=== PATIENT | female | born 2000 | race Caucasian/White ===

== ENCOUNTER 2020-02-25 08:00 | Outpatient (RCR) | payer OTHER | END 2020-05-25 | disposition home or self-care (01) | LOC: CARD 08:00 | PROVIDERS: ATTEND Nurse Practitioner Family | DX: R00.0 Tachycardia, unspecified (principal); R00.2 Palpitations; R42 Dizziness and giddiness; R07.89 Other chest pain | CPT/HCPCS: 93225; 93226 ==

== ENCOUNTER → 2020-03-10 | Outpatient (CLI) | payer OTHER | LOC: CARD 12:25 | PROVIDERS: ATTEND Internal Medicine Cardiovascular Disease | DX: I49.8 Other specified cardiac arrhythmias (principal); F41.9 Anxiety disorder, unspecified; R00.0 Tachycardia, unspecified; R00.2 Palpitations | CPT/HCPCS: 93306 ==

== ENCOUNTER → 2020-04-30 | Outpatient (CLI) | payer OTHER ==
--- NOTE | 2020-04-30 10:59 | Diagnostic Imaging Report ---
PROCEDURE: CT urinary tract, rule out kidney stone. TECHNIQUE: Multiple contiguous axial images were obtained through the abdomen and pelvis without the use of intravenous contrast. Auto Exposure Controls were utilized during the CT exam to meet ALARA standards for radiation dose reduction. INDICATION: Right-sided flank pain for 3 days. Hematuria. COMPARISON: No prior studies are available for comparison. Lung bases are clear. The liver and gallbladder are unremarkable. No biliary ductal dilatation is identified. The pancreas and spleen are unremarkable. No adrenal mass is detected. No renal calculi are identified. No hydronephrosis is detected. No ureteral or bladder calculi are identified. Aorta is nonaneurysmal. The bowel loops are normal caliber. No obstruction is identified. The appendix is visualized in the right lower quadrant and appears unremarkable. There are several prominent lymph nodes in the right lower quadrant as well as the central mesentery, perhaps on the basis of mesenteric adenitis. No free fluid or fluid collection is identified. The uterus and bladder are unremarkable. IMPRESSION: 1. No evidence of urinary tract calculi or obstruction. 2. No CT evidence of acute appendicitis. 3. Mildly prominent lymph node in the right lower quadrant and central mesentery, perhaps on the basis of mesenteric adenitis. No other significant abnormality is detected. Dictated by: Dictated on workstation # [id number]
== END ==
LOC: RAD 10:30
PROVIDERS: ATTEND Nurse Practitioner Family
DX: R31.9 Hematuria, unspecified (principal); R10.9 Unspecified abdominal pain
CPT/HCPCS: 74176

== ENCOUNTER 2020-05-26 08:00 | Outpatient (RCR) | payer OTHER | END 2020-08-24 | disposition home or self-care (01) | LOC: CARD 08:00 | PROVIDERS: ATTEND Nurse Practitioner Family | DX: R00.0 Tachycardia, unspecified (principal); R00.2 Palpitations; R42 Dizziness and giddiness; R07.89 Other chest pain ==

== ENCOUNTER → 2020-06-15 | Outpatient (CLI) | payer OTHER ==
[~2020-06-15] MED LIST: CATHETER FLUSH 10 ML SYR IV PRN
--- NOTE | 2020-06-15 14:47 | Diagnostic Imaging Report ---
INDICATION: Right upper quadrant abdominal pain. FINDINGS: The patient was administered 5.47 mCi of Tc 99m Choletec and sequential imaging was performed over the right upper abdomen. There is progressive, homogeneous accumulation of radiotracer within the liver parenchyma. There is filling of the bile ducts and subsequent filling of the gallbladder. There is progressive clearance of activity from the liver parenchyma and accumulation of radiotracer within loops of small bowel. The patient was then administered a fatty meal, utilizing 8 ounces of Ensure. The gallbladder ejection fraction was calculated to be approximately 26%. (Normal values post fatty meal stimulation are 33% or greater.) IMPRESSION: 1. Hepatobiliary scan demonstrates a patent biliary tree. 2. Abnormal gallbladder ejection fraction of approximately 26%. Dictated by: Dictated on workstation # [id number]
== END ==
LOC: CARD 12:45
PROVIDERS: ATTEND Nurse Practitioner Family
DX: R10.11 Right upper quadrant pain (principal); R93.2 Abnormal findings on diagnostic imaging of liver and biliary tract
CPT/HCPCS: 78227; A9537

== ENCOUNTER → 2020-11-02 | Outpatient (CLI) | payer OTHER ==
[2020-11-02 11:18] VITALS: BP 135/70
--- NOTE | 2020-11-02 11:18 | Cardiology Stress Test Report ---
Stress Test Report Date of Procedure/Referring: Date of Procedure: Nov 02, 2020 PCP Shanna Noel Admitting Physician Valerio Frederick DO Indications: Hypotension Baseline Heart Rate: 119 Baseline Blood Pressure: Blood Pressure Systolic: 135 Blood Pressure Diastolic: 70 Baseline EKG: Baseline EKG: normal sinus rhythm Summary/Conclusion: Summary: In summary, the patient started exercising with a baseline heart rate, blood pressure and EKG mentioned above Patient was able to exercise for a total of 4minutes on Dann protocol, METs 5.8 Maximum heart rate 186 Maximum blood pressure 127/66 Stress EKG, Minimal nondiagnostic changes Recovery EKG , Return to baseline Conclusion: 1. Fair exercise tolerance for a total of 4 minutes on Dann protocol, 5.8 METs, achieving 93 percent of maximum expected heart rate 2. Minimal nondiagnostic EKG changes with exercise returned to baseline during recovery 3. No arrhythmia was noted EVIE BILLINGSLEY MD Nov 02, 2020 11:18
== END ==
LOC: CARD 09:55
PROVIDERS: ATTEND Physician Assistant
DX: I95.1 Orthostatic hypotension (principal)

== ENCOUNTER → 2020-11-04 | Outpatient (CLI) | payer OTHER ==
[~2020-11-04] VITALS: Ht 171 cm; Wt 114.9 kg
[2020-11-04] VITALS (18 sets, daily range): BP systolic 109–137; BP diastolic 49–85
[~2020-11-04] MED LIST changes: +ATROPINE INJECTION 1 MG/10 ML SYR (ABBOTT) ONE; -CATHETER FLUSH 10 ML SYR IV PRN; +NS IV 1000 ML 1,000 ML IV SCH; +NS IV 1000 ML 1,000 ML ONE
--- NOTE | 2020-11-04 11:58 | NUR ---
iv dc'd cath intact on removal ambulatory on dc
--- NOTE | 2020-11-04 12:23 | Cardiology Tilt Table Test ---
Cardiology-Tilt Table Test Tilt Table Test Date 11/04/20 Baseline Vitals Vital Signs Date Time Temp Pulse Resp B/P (MAP) Pulse Ox O2 Delivery O2 Flow Rate FiO2 11/04/20 11:03 36.4 86 18 133/71 (91) 96 Room Air Vital Signs VS - Last 72 Hours, by Label 11/04/20 11/04/20 11/04/20 11/04/20 11:03 11:10 11:14 11:16 Temp 36.4 Pulse 86 102 107 107 Resp 18 B/P (MAP) 133/71 (91) 133/77 (95) 124/82 (96) 116/73 (87) Pulse Ox 96 96 95 94 O2 Delivery Room Air 11/04/20 11/04/20 11/04/20 11/04/20 11:17 11:19 11:23 11:26 Pulse 108 133 123 93 B/P (MAP) 122/76 (91) 133/63 (86) 136/80 (98) 134/85 (101) Pulse Ox 94 94 95 11/04/20 11/04/20 11/04/20 11/04/20 11:28 11:30 11:31 11:33 Pulse 96 107 109 181 B/P (MAP) 135/78 (97) 136/77 (96) 127/61 (83) 116/55 (75) Pulse Ox 96 95 94 11/04/20 11/04/20 11/04/20 11/04/20 11:35 11:37 11:39 11:43 Pulse 170 165 158 140 B/P (MAP) 109/64 (79) 129/74 (92) 117/76 (90) 122/72 (89) Pulse Ox 94 93 93 11/04/20 11/04/20 11:46 11:48 Pulse 154 149 B/P (MAP) 125/55 (78) 137/49 (78) Patient was tilted to 75 degrees for [10] minutes, then returned to supine position, given [2] sublingual nitroglycerin tablets, then tilted again to 75 degrees for [15] minutes. During test, patient was: symptomatic (with dizziness and tachycardia with max HR 176) In Conclusion;: Negative Tilt Table Test During stage 2 patient had tachycardia with HR in the 170's with dizziness. No syncopal episode. Patient symptoms correlated with her POTS diagnoses. I will start her on Lopressor 12.5mg BID. This is Shanna Navarro PA-C, as a scribe for SHANNA Regalado Nov 04, 2020 12:23
== END ==
LOC: CARD 10:28
PROVIDERS: ATTEND Internal Medicine Cardiovascular Disease
DX: I49.8 Other specified cardiac arrhythmias (principal); I95.1 Orthostatic hypotension; F41.9 Anxiety disorder, unspecified; R00.2 Palpitations; Z20.822 Contact with and (suspected) exposure to COVID-19
CPT/HCPCS: 93660

== ENCOUNTER 2020-11-07 08:10 | Emergency (ER) | payer OTHER ==
[~2020-11-07] VITALS: Ht 170.2 cm; Wt 113.4 kg
[2020-11-07] MEDS ORDERED: FAMOTIDINE 20 MG (PEPCID) TABLET PO ONE (09:15)
[2020-11-07] MEDS ORDERED: predniSONE 20 MG TAB PO ONE (09:15)
[2020-11-07] MEDS ORDERED: PRD20T PO (09:26)
--- NOTE | 2020-11-07 09:28 | ED Integumentary General ---
General Chief Complaint: Allergic Reaction Stated Complaint: BODY RASH Nursing Triage Note: PT AMB TO RM 8 WITH COMPLAINT OF HIVES, FACIAL SWELLING AND ITCHING THAT STARTED LAST NIGHT. PT DENIES TAKING ANY NEW MEDICATION OR EATING A DIFFERENT FOOD LAST NIGHT. STATES TOOK A BENADRYL AN HOUR AND A HALF AGO. Source: patient Exam Limitations: no limitations History of Present Illness Date Seen by Provider: Nov 07, 2020 Time Seen by Provider: 09:00 Initial Comments Patient is a 20-year-old female who presents to the emergency room with a chief complaint of rash/hives onset last evening. Patient states that she had primarily right-sided itching and hive-like dermatitis. Patient states that it was also on her back. Patient denies any new foods, new body washes, new detergents. She states that she had similar symptoms several months ago and they switched to a "free and clear" detergent. Patient states that she took 2 Benadryl approximately 1 hour prior to arrival. She states the rash is improved. Patient states that she did start taking her blood pressure medicine, metoprolol about 4 days ago. No recent illnesses. All other review of systems reviewed and negative except as stated. Timing/Duration: yesterday Severity: mild Location: torso, extremities Possible Cause: no cause identified Modifying Factors: improves with antihistamine Associated Symptoms: denies symptoms Allergies and Home Medications Allergies Coded Allergies: No Known Drug Allergies (Unverified , 06/15/20) Patient Home Medication List Home Medication List Reviewed: Yes Review of Systems Review of Systems Constitutional: see HPI EENTM: no symptoms reported Respiratory: no symptoms reported; No cough, No short of breath, No wheezing Cardiovascular: no symptoms reported Gastrointestinal: no symptoms reported Genitourinary: no symptoms reported Musculoskeletal: no symptoms reported Skin: rash All Other Systems Reviewed Negative Unless Noted: Yes Past Zhgixyr-Rkwolb-Olrpey Hx Patient Social History Alcohol Use: Denies Use Smoking Status: Never a Smoker 2nd Hand Smoke Exposure: No Recent Infectious Disease Expo: No Immunizations Up To Date Tetanus Booster (TDap): Unknown PED Vaccines UTD: Yes Date of Influenza Vaccine: Aug 04, 2020 Past Medical History Gallbladder, Tonsillectomy Respiratory: No Currently Using CPAP: No Cardiac: Yes Palpitations Neurological: No Genitourinary: No Gastrointestinal: Yes (work up for abd pain) Cancer: No Blood Disorders: No Adverse Reaction/Blood Tranf: No Physical Exam Vital Signs Vital Signs - First Documented 11/07/20 08:20 Temp 37.0 Pulse 115 Resp 20 B/P (MAP) 108/86 (93) Pulse Ox 96 O2 Delivery Room Air Capillary Refill : Less Than 3 Seconds General Appearance: WD/WN, no apparent distress HEENT: normal ENT inspection Neck: full range of motion, supple, normal inspection Cardiovascular: regular rate, rhythm Respiratory: lungs clear, normal breath sounds, no respiratory distress, no accessory muscle use Gastrointestinal: non tender, soft Extremities: non-tender, normal inspection Neurologic/Psychiatric: alert, normal mood/affect, oriented x 3 Skin: normal color, warm/dry, other (Scant hive-like rash noted to the right upper extremity at the axilla, new since patient arrival in the emergency department) Progress/Results/Core Measures Results/Orders My Orders Orders - JACLYN MOULTON MD Prednisone Tablet (Deltasone Tablet) (11/07/20 09:15) Famotidine Tablet (Pepcid Tablet) (11/07/20 09:15) Vital Signs/I&O 11/07/20 08:20 Temp 37.0 Pulse 115 Resp 20 B/P (MAP) 108/86 (93) Pulse Ox 96 O2 Delivery Room Air Blood Pressure Mean: 93 Progress Progress Note : Time: 09:28 Progress Note resting comfortably. no airway involvement/ respiratory distress. simple hives to RUE. I encouraged a food diary and inventory of detergents/lotions/body washes. return precautions given. Departure Impression Primary Impression: Hives Disposition: 01 HOME, SELF-CARE Condition: Stable Departure-Patient Inst. Decision time for Depature: 09:26 Referrals: INGA BETANCOURT DO (PCP/Family) Primary Care Physician Patient Instructions: Hives Add. Discharge Instructions: Continue to take 2 Benadryl tablets every 6 hours as needed for itching/rash. Take Pepcid [id number], 20 mg twice a day for the next 5 days. I have given you a prescription for oral steroids. Take this once a day for the next 5 days. Return to the emergency room for any worsening symptoms of skin rash especially associated with difficulty breathing, shortness of breath, swelling in your mouth or airway or any other emergent concerns. All discharge instructions reviewed with patient and/or family. Voiced understanding. Scripts Prednisone (Prednisone) 20 Mg Tab 40 MG PO DAILY, #5 TAB 0 Refills Prov: JACLYN MOULTON MD 11/07/20 JACLYN MOULTON MD Nov 07, 2020 09:28
[2020-11-07 10:00] VITALS: BP 110/79
== END 2020-11-07 10:00 | disposition home or self-care (01) ==
LOC: EDUNIT# 08:10 → ER 08:11
DX: L50.9 Urticaria, unspecified (principal)
CPT/HCPCS: 99283

== ENCOUNTER → 2020-11-24 | Outpatient (CLI) | payer OTHER ==
[~2020-11-24] MED LIST changes: -ATROPINE INJECTION 1 MG/10 ML SYR (ABBOTT) ONE; +CATHETER FLUSH 10 ML SYR IV PRN; +HOLD METFORMIN - RECEIVED CONTRAST 20 ML VIAL IV SCH; +IOHEXOL 350 MG/ML 100 ML (OMNIPAQUE 350) VIAL IV ONE; +NS 100 ML (IVPB) BAG IV ONE; -NS IV 1000 ML 1,000 ML IV SCH; -NS IV 1000 ML 1,000 ML ONE; +PRD20T PO
--- NOTE | 2020-11-24 13:43 | Diagnostic Imaging Report ---
PROCEDURE: CT abdomen and pelvis with contrast. TECHNIQUE: Multiple contiguous axial images were obtained through the abdomen and pelvis after administration of intravenous contrast. Auto Exposure Controls were utilized during the CT exam to meet ALARA standards for radiation dose reduction. All CT scans use one or more of the following dose optimizing techniques: automated exposure control, MA and/or KvP adjustment based on patient size and exam type or iterative reconstruction. INDICATION: Pelvic pain. COMPARISON: Correlation is made with prior CT from 04/30/2020. FINDINGS: Lung bases are clear. No discrete liver mass is detected. Gallbladder is surgically absent. There is no biliary ductal dilatation. Pancreas and spleen are unremarkable. No adrenal mass is detected. Kidneys are unremarkable. The small and large bowel loops are normal in caliber. There is no obstruction. There is no free fluid or fluid collection. The bladder and uterus are unremarkable. No abdominal or pelvic lymphadenopathy is seen. Bony structures are nonacute. IMPRESSION: Unremarkable CT of the abdomen and pelvis. No acute feature is detected. Dictated by: Dictated on workstation # [id number]
== END ==
LOC: RAD 09:30
PROVIDERS: ATTEND Nurse Practitioner Family
DX: R10.2 Pelvic and perineal pain (principal); R10.11 Right upper quadrant pain; R31.29 Other microscopic hematuria
CPT/HCPCS: 74177

== ENCOUNTER 2021-01-19 14:30 | Outpatient (RCR) | payer OTHER ==
--- NOTE | 2021-01-19 13:00 | Diagnostic Imaging Report ---
CLINICAL INDICATION: Patient with lumbalgia. EXAM: X-ray of the lumbar spine, 5 views. COMPARISON: None. FINDINGS: There is a transitional lumbosacral vertebra which has a slightly clinical appearance and would be designated as a transitional S1 vertebra. There is no acute fracture or dislocation. There is subtle right curvature of the lumbar spine. There is no gross pars defect seen as visualized. Intervertebral disk heights and vertebral body heights are maintained. Sacroiliac joints are unremarkable. IMPRESSION: 1: There is no acute lumbar spine fracture or dislocation. 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 3: There is subtle right curvature of the lumbar spine. Otherwise, lumbar spine is unremarkable. Dictated by: Dictated on workstation # [id number]
[~2021-01-19 14:30] MED LIST changes: -CATHETER FLUSH 10 ML SYR IV PRN; -HOLD METFORMIN - RECEIVED CONTRAST 20 ML VIAL IV SCH; -IOHEXOL 350 MG/ML 100 ML (OMNIPAQUE 350) VIAL IV ONE; -NS 100 ML (IVPB) BAG IV ONE; +RT-ALBUTEROL SULF 2.5 MG/3 ML PRE-MIX VIAL INH ONE
== END 2021-04-19 | disposition home or self-care (01) ==
LOC: CARD 14:30
PROVIDERS: ATTEND Nurse Practitioner Family
DX: M54.5 Low back pain (principal); I49.8 Other specified cardiac arrhythmias
CPT/HCPCS: 72110; 93270; 94060; 94726; 94729

== ENCOUNTER → 2022-06-02 | Outpatient (CLI) | payer OTHER ==
[~2022-06-02] MED LIST changes: -RT-ALBUTEROL SULF 2.5 MG/3 ML PRE-MIX VIAL INH ONE
== END ==
LOC: CARD 13:26
PROVIDERS: ATTEND Internal Medicine Cardiovascular Disease
DX: I10 Essential (primary) hypertension (principal); I25.10 Atherosclerotic heart disease of native coronary artery without angina pectoris
CPT/HCPCS: 93306

== ENCOUNTER 2023-01-14 22:37 | Emergency (ER) | payer OTHER ==
[~2023-01-14] VITALS: Ht 170.2 cm; Wt 113.4 kg
--- NOTE | 2023-01-14 22:54 | ED GI ---
General Chief Complaint: Abdominal/GI Problems Stated Complaint: RIGHT FLANK PAIN Nursing Triage Note: PT AMB TO ED BY POV WITH C/O R FLANK PAIN RADIATING TO ABD. PT REPORTS PAIN BEGAN A FEW WEEKS AGO, WORSE TONIGHT. PT HAS SEEN PCP FOR THE PAIN AND HAD TRACE AMOUNTS OF BLOOD IN URINE. REPORTS URGENCY AND NAUSEA, DENIES VOMITING OR BURNING WITH URINATION. DENIES PAIN AT THIS TIME, BUT REPORTS PAIN 10/10 WHEN IT HITS. Source of Information: Patient Exam Limitations: No Limitations History of Present Illness Date Seen by Provider: Jan 14, 2023 Time Seen by Provider: 22:40 Initial Comments 22-year-old female with no pertinent past medical history coming in due to right flank pain radiating to the abdomen. Started couple weeks ago, worse tonight, intermittent. Pain can be severe at times, right now is not there. Associated with nausea, no significant vomiting. Went to her PCP, was told she had some blood in her urine and that it could be a kidney stone. Has not taken any medicines for it including no Tylenol or ibuprofen. Otherwise denying any other acute complaints. Does not have periods with her control. Allergies and Home Medications Allergies Coded Allergies: No Known Drug Allergies (Unverified , 06/15/20) Patient Home Medication List Home Medication List Reviewed: Yes Prednisone (Prednisone) 20 Mg Tab, 40 MG PO DAILY Prescribed by: JACLYN MOULTON on 11/07/20 0926 Review of Systems Review of Systems Constitutional: No fever EENTM: No Symptoms Reported Respiratory: No Symptoms Reported Cardiovascular: No Symptoms Reported Gastrointestinal: See HPI Genitourinary: See HPI Musculoskeletal: no symptoms reported Skin: no symptoms reported Psychiatric/Neurological: No Symptoms Reported Endocrine: No Symptoms Reported Past Wzwuakh-Lnozdo-Rytysi Hx Patient Social History Tobacco Use?: No Use of E-Cig and/or Vaping dev: No Substance use?: No Alcohol Use?: No Pt feels they are or have been: No Immunizations Up To Date Tetanus Booster (TDap): Unknown PED Vaccines UTD: Yes Influenza Vaccine Up-to-Date: No; Not Current First/Initial COVID19 Vaccinat: X3 Second COVID19 Vaccination Srinivas: X3 Past Medical History Surgery/Hospitalization HX: [facility] SVT, POTS Surgeries: Yes Gallbladder, Tonsillectomy Respiratory: No Currently Using CPAP: No Cardiac: Yes Palpitations Neurological: No Genitourinary: No Gastrointestinal: Yes (work up for abd pain) Cancer: No Blood Disorders: No Adverse Reaction/Blood Tranf: No Physical Exam Vital Signs Vital Signs - First Documented 01/14/23 22:43 Temp 36.7 Pulse 86 Resp 18 B/P (MAP) 124/69 (87) Pulse Ox 98 O2 Delivery Room Air Capillary Refill : Less Than 3 Seconds Height/Weight/BMI Height: '" Weight: lbs. oz. kg; 39.00 BMI Method: General Appearance: WD/WN, no apparent distress HEENT: PERRL/EOMI, normal ENT inspection, pharynx normal Neck: non-tender, full range of motion, supple, normal inspection Respiratory: chest non-tender, lungs clear, normal breath sounds, no respiratory distress, no accessory muscle use Cardiovascular: regular rate, rhythm, no edema, no murmur Gastrointestinal: normal bowel sounds, non tender, soft; No distended, No guarding, No rebound Extremities: normal range of motion, non-tender, normal inspection, no pedal edema, no calf tenderness, normal capillary refill Back: normal inspection, no CVA tenderness, no vertebral tenderness Neurologic/Psychiatric: no motor/sensory deficits, alert, normal mood/affect Skin: normal color, warm/dry Progress/Results/Core Measures Results/Orders Lab Results Laboratory Tests Test 01/14/23 22:58 01/14/23 23:05 Range/Units Urine Color YELLOW Urine Clarity CLEAR Urine pH 6.0 5-9 Urine Specific [place] >=1.030 1.016-1.022 Urine Protein TRACE H NEGATIVE Urine Glucose (UA) NEGATIVE NEGATIVE Urine Ketones NEGATIVE NEGATIVE Urine Nitrite NEGATIVE NEGATIVE Urine Bilirubin NEGATIVE NEGATIVE Urine Urobilinogen 0.2 < = 1.0 MG/DL Urine Leukocyte Esterase NEGATIVE NEGATIVE Urine RBC (Auto) 3+ H NEGATIVE Urine RBC 5-10 H /HPF Urine WBC 0-2 /HPF Urine Squamous Epithelial Cells 2-5 /HPF Urine Crystals NONE /LPF Urine Bacteria TRACE /HPF Urine Casts NONE /LPF Urine Mucus SMALL H /LPF Urine Culture Indicated NO White Blood Count 8.6 4.3-11.0 10^3/uL Red Blood Count 4.73 3.80-5.11 10^6/uL Hemoglobin 13.9 11.5-16.0 g/dL Hematocrit 41 35-52 % Mean Corpuscular Volume 88 80-99 fL Mean Corpuscular Hemoglobin 29 25-34 pg Mean Corpuscular Hemoglobin Concent 34 32-36 g/dL Red Cell Distribution Width 13.0 10.0-14.5 % Platelet Count 293 130-400 10^3/uL Mean Platelet Volume 9.3 9.0-12.2 fL Immature Granulocyte % (Auto) 0 % Neutrophils (%) (Auto) 52 42-75 % Lymphocytes (%) (Auto) 37 12-44 % Monocytes (%) (Auto) 8 0-12 % Eosinophils (%) (Auto) 2 0-10 % Basophils (%) (Auto) 1 0-10 % Neutrophils # (Auto) 4.4 1.8-7.8 10^3/uL Lymphocytes # (Auto) 3.2 1.0-4.0 10^3/uL Monocytes # (Auto) 0.7 0.0-1.0 10^3/uL Eosinophils # (Auto) 0.2 0.0-0.3 10^3/uL Basophils # (Auto) 0.0 0.0-0.1 10^3/uL Immature Granulocyte # (Auto) 0.0 0.0-0.1 10^3/uL Sodium Level 139 135-145 MMOL/L Potassium Level 3.5 L 3.6-5.0 MMOL/L Chloride Level 107 98-107 MMOL/L Carbon Dioxide Level 21 21-32 MMOL/L Anion Gap 11 5-14 MMOL/L Blood Urea Nitrogen 16 7-18 MG/DL Creatinine 0.80 0.60-1.30 MG/DL Estimat Glomerular Filtration Rate 107 BUN/Creatinine Ratio 20 Glucose Level 86 70-105 MG/DL Calcium Level 9.0 8.5-10.1 MG/DL Corrected Calcium 8.8 8.5-10.1 MG/DL Total Bilirubin 0.5 0.1-1.0 MG/DL Aspartate Amino Transf (AST/SGOT) 28 5-34 U/L Alanine Aminotransferase (ALT/SGPT) 50 0-55 U/L Alkaline Phosphatase 78 40-136 U/L Total Protein 7.6 6.4-8.2 GM/DL Albumin 4.3 3.2-4.5 GM/DL Lipase 15 8-78 U/L My Orders Orders - DARYN HEALY MD Cbc With Automated Diff (01/14/23 22:51) Comprehensive Metabolic Panel (01/14/23 22:51) Lipase (01/14/23 22:51) Ua Culture If Indicated (01/14/23 22:51) Ct Abdomen/Pelvis Wo (01/14/23 22:51) Ed Iv/Invasive Line Start (01/14/23 22:51) Ondansetron Injection (Zofran Injectio (01/14/23 23:00) Ketorolac Injection (Toradol Injection) (01/14/23 23:00) Urine Bedside (01/14/23 22:51) Medications Given in ED Current Medications Medications Dose Ordered Sig/Rizwan Route Start Time Stop Time Status Last Admin Dose Admin Ketorolac Tromethamine 15 mg ONCE ONCE IVP 01/14/23 23:00 01/14/23 23:01 DC 01/14/23 23:05 15 MG Ondansetron HCl 4 mg ONCE ONCE IVP 01/14/23 23:00 01/14/23 23:01 DC 01/14/23 23:04 4 MG Vital Signs/I&O 01/14/23 22:43 Temp 36.7 Pulse 86 Resp 18 B/P (MAP) 124/69 (87) Pulse Ox 98 O2 Delivery Room Air Blood Pressure Mean: 87 Progress Progress Note : Progress Note 22-year-old female presenting for right flank pain. ABCs were intact and vitals were stable on presentation. Differential includes ureterolithiasis versus less likely pyelonephritis/cystitis versus muscle spasm versus some other etiology. An IV was placed and basic labs were obtained and were significant for normal creatinine, urinalysis with some blood but no obvious infection, negative test. CT abdomen pelvis without contrast on my interpretation with no obvious nephrolithiasis or hydronephrosis. On review of the stat read overnight radiology read, they agree to this with no concerns for acute findings. The patient does mention that she noticed some sediment in her urine earlier, and now that her pain is better, I suspect she actually passed a kidney stone prior to the CT imaging. She did receive Toradol and Zofran here, pain is very well controlled and essentially gone. We will send a prescription for Toradol and nausea medicines that she needs and later. I believe she is otherwise stable for discharge with outpatient follow-up. She was sent home with strict return precautions. Departure Impression Primary Impression: Flank pain Disposition: HOME, SELF-CARE Condition: Improved Departure-Patient Inst. Decision time for Depature: 00:38 Referrals: INGA BETANCOURT DO (PCP/Family) Primary Care Physician Patient Instructions: Flank Pain ED Add. Discharge Instructions: Fortunately there is no kidney stone seen on the imaging today. I suspect you passed 1 earlier when you mentioned the sediment in your urine. You did have a little bit of blood in your urine which fits towards this as well. No evidence of infection in your urine. Toradol which is similar to ibuprofen but stronger was sent to your pharmacy as well as nausea meds if you need. Otherwise please follow-up with your doctor if things are not improving or come back. Scripts Ondansetron (Ondansetron Odt) 4 Mg Tab.rapdis 4 MG SL Q6H PRN for NAUSEA/VOMITING for 5 Days, #20 TAB Prov: DARYN HEALY MD 01/15/23 Ketorolac Tromethamine (Ketorolac Tromethamine) 10 Mg Tablet 10 MG PO Q8H PRN for PAIN-SEVERE (8-10) for 3 Days, #9 TAB Prov: DARYN HEALY MD 01/15/23 Work/School Note: Work Release Form Date Seen in the Emergency Department: Jan 15, 2023 Return to Work: Jan 16, 2023 Restrictions: No Restrictions DARYN HEALY MD Jan 14, 2023 22:54
[2023-01-14] MEDS ORDERED: ONDANSETRON 4 MG/2 ML (SDV) Z0FRAN IVP ONE (23:00)
[2023-01-14] MEDS ORDERED: KETOROLAC 30 MG/ML VIAL IVP ONE (23:00)
[2023-01-14 23:04] LABS: BILIRUBIN,URINE NEGATIVE (NEGATIVE); CLARITY,URINE CLEAR; COLOR,URINE YELLOW; GLUCOSE, URINE (UA) NEGATIVE (NEGATIVE); KETONES,URINE NEGATIVE (NEGATIVE); LEUKOCYTE ESTERASE ,URINE NEGATIVE (NEGATIVE); NITRITE,URINE NEGATIVE (NEGATIVE); PROTEIN,URINE TRACE (NEGATIVE)
[2023-01-14 23:16] LABS: BASOPHILS % (AUTO) 1 % (0-10); EOSINOPHILS # (AUTO) 0.2 10^3/uL (0.0-0.3); EOSINOPHILS % (AUTO) 2 % (0-10); HEMATOCRIT 41 % (35-52); HEMOGLOBIN 13.9 g/dL (11.5-16.0); LYMPHOCYTES # (AUTO) 3.2 10^3/uL (1.0-4.0); LYMPHOCYTES % (AUTO) 37 % (12-44); MEAN CORPUSCULAR HEMOGLOBIN 29 pg (25-34); MEAN CORPUSCULAR HGB CONC 34 g/dL (32-36); MEAN CORPUSCULAR VOLUME 88 fL (80-99); MEAN PLATELET VOLUME 9.3 fL (9.0-12.2); MONOCYTES # (AUTO) 0.7 10^3/uL (0.0-1.0); MONOCYTES % (AUTO) 8 % (0-12); NEUTROPHILS # (AUTO) 4.4 10^3/uL (1.8-7.8); NEUTROPHILS % (AUTO) 52 % (42-75); PLATELET COUNT 293 10^3/uL (130-400); WHITE BLOOD COUNT 8.6 10^3/uL (4.3-11.0)
[2023-01-14 23:18] LABS: BACTERIA,URINE TRACE /HPF; WBC,URINE 0-2 /HPF
[2023-01-14 23:23] LABS: ALBUMIN 4.3 GM/DL (3.2-4.5)
[2023-01-14 23:24] LABS: POTASSIUM 3.5 MMOL/L (3.6-5.0)
[2023-01-14 23:26] LABS: TOTAL PROTEIN 7.6 GM/DL (6.4-8.2)
[2023-01-14 23:28] LABS: BILIRUBIN,TOTAL 0.5 MG/DL (0.1-1.0)
[2023-01-14 23:30] LABS: CREATININE SERUM 0.8 MG/DL (0.60-1.30)
[2023-01-15] MEDS ORDERED: ONDA4TAB11 SL (00:39)
[2023-01-15] MEDS ORDERED: KETO10TA PO (00:39)
[2023-01-15 00:52] VITALS: BP 116/69
--- NOTE | 2023-01-15 07:52 | Diagnostic Imaging Report ---
CT ABDOMEN/PELVIS WO TECHNIQUE: Unenhanced CT imaging of the abdomen and pelvis was performed. 2-D reformats are created and submitted for interpretation. Automatic exposure controls were utilized to optimize patient dose. INDICATION: Right flank pain COMPARISON: 11/24/2020 FINDINGS: Lower chest: The lung bases are clear. No pericardial or pleural effusion. Peritoneum: No free intraperitoneal air or fluid. Liver and biliary system: Unenhanced liver is normal. Cholecystectomy. Spleen and Pancreas: Spleen is normal. Unenhanced pancreas is grossly normal. Adrenals: Normal. tract: No renal or ureteral calculi. No obstructive uropathy. Urinary bladder is decompressed. Uterus and ovaries are normal in appearance. GI tract: Stomach is filled with fluid and stomach is partially filled with air and fluid. No bowel obstruction. No pericolonic inflammatory changes. Normal appendix. Vasculature and Lymph nodes: Normal caliber aorta. No abdominal or pelvic lymphadenopathy. Musculoskeletal: No concerning osseous lesion. IMPRESSION: 1. No acute inflammatory or obstructive process. 2. No urinary tract stones. 3. Findings are in agreement with the preliminary report. Dictated by: Dictated on workstation # [id number]
== END 2023-01-15 00:52 | disposition home or self-care (01) ==
LOC: EDUNIT# 22:37 → ER 22:40
DX: R10.9 Unspecified abdominal pain (principal); R11.0 Nausea; Z90.49 Acquired absence of other specified parts of digestive tract
CPT/HCPCS: 36415; 74176; 80053; 81000; 83690; 84703; 85025

== ENCOUNTER → 2023-06-20 | Outpatient (CLI) | payer MEDICAID, OTHER ==
[~2023-06-20] MED LIST changes: +KETO10TA PO; +ONDA4TAB11 SL
== END ==
LOC: CARD 08:55
PROVIDERS: ATTEND Nurse Practitioner Family
DX: R00.0 Tachycardia, unspecified (principal); R00.2 Palpitations
CPT/HCPCS: 93246